=== PATIENT | female | born 1940 | race Caucasian/White ===

== ENCOUNTER 2023-02-16 12:57 | Observation (INO) | payer MEDICARE, MEDICAID, SELFPAY ==
[2023-02-16] VITALS (15 sets, daily range): BP systolic 105–129; BP diastolic 29–68; PULSE 72–85; RESP 16–18; TEMP 36.4–36.9; O2SAT 91–100
[2023-02-16 13:14] LABS: Basophils # 0.1 10^3/uL (0.0-0.1); Basophils % 0.2 %; Eosinophils % 0.1 %; Hematocrit 22.8 % (36-47); Lymphocytes # 1.1 10^3/uL (0.8-4.8); Mean Corpuscular HGB Conc 28.9 g/dL (30-55); Mean Corpuscular Hemoglobin 23.7 pg (27-33); Mean Platelet Volume 9.3 fL (7.4-10.4); Monocytes # 1.7 10^3/uL (0.2-0.9); Monocytes % 6.5 %; Neutrophils # 22.33 10^3/uL (1.8-7.7); Neutrophils % 84.7 %; Nucleated Red Blood Cells % 0.1 %; Platelet Count 419 10^3/cmm (157-399); Red Blood Count 2.78 10^6/uL (3.85-5.65); Red Cell Distribution Width 20.7 % (12.1-15.1); White Blood Count 26.35 10^3/uL (3.29-11.43)
[2023-02-16 13:39] LABS: Alanine Aminotransferase 10 U/L (0-33); Albumin Level 2.6 g/dL (3.5-5.2); Alkaline Phosphatase 112 U/L (35-105); Anion Gap 14.2 (5-19); Aspartate Amino Transferase 14 U/L (0-32); Blood Urea Nitrogen 22 mg/dL (8-23); Calcium 8.1 mg/dL (8.5-10.5); Carbon Dioxide 26 mmol/L (22-29); Chloride 103 mmol/L (98-107); Globulin 3.1 g/dL (1.3-4.6); Glucose 93 mg/dL (65-115); Osmolality Calculated 291 mOsm/kg (285-295); Potassium 4.2 mmol/L (3.5-5.1); Sodium 139 mmol/L (136-145); Total Bilirubin 0.3 mg/dL (0.15-1.2); Total Protein 5.7 g/dL (6.6-8.7)
--- NOTE | 2023-02-16 13:44 | ED_ITS ---
HPI - Recheck/Abnormal Lab/Rx General: Chief Complaint: Recheck/Abnormal Lab/Rx Stated Complaint: Low HGB Time Seen by Provider: 02/16/23 13:00 Source: patient Mode of arrival: EMS History of Present Illness: 82-year-old female presents emergency room complaining of feeling very weak. He has had chills and been increasingly short of breath she normally is on 2 L by nasal cannula for COPD and congestive heart failure. She has headache. Today shortness of breath and cough. He was recently hospitalized for an on displaced hip fracture which was being treated nonoperatively. This was in [place]. She has had a bit of increased productive cough recently in addition to being extremely weak and tired. She was sent here because of a low hemoglobin. residential and sent a BMP but no CBC when we contact them asking for labs to be sent the same labs that get already do not have any available baseline or old hemoglobins on her. MD complaint: abnormal lab Context: called for abnormal lab result Associated symptoms: fever, chills, chest pain, shortness of breath, rash, malaise, nausea and abdominal pain Review of Systems Const: Reports: fatigue and malaise; Denies: fever(s) or chills Card: Reports: dyspnea on exertion; Denies: chest pain, edema or orthopnea Resp: Reports: dyspnea and productive cough; Denies: non-productive cough GI: Denies: abdominal pain, nausea, vomiting, hematemesis, coffee ground emesis, diarrhea, constipation, bloating, hematochezia or melena : Denies: flank pain, difficulty voiding, dysuria, urinary frequency or urinary urgency Skin/Breast: Denies: rash or pruritus PFS ED PFSH: Medical History COPD (chronic obstructive pulmonary disease) Hip fracture Hypertension Neuropathy Respiratory failure Surgical History Status post insertion of spinal cord stimulator Family History Son Tremor Social History Smoking and tobacco status: former smoker Alcohol intake: never Substance/Drug Use: never Physical Exam Const: GENERAL APPEARANCE: cooperative and comfortable ORIENTATION/ CONSCIOUSNESS: Yes awake, Yes oriented to person, Yes oriented to place and Yes oriented to time HENMT: COMMON NORMALS: normocephalic, atraumatic and hearing grossly normal bilaterally HEAD & SCALP: normocephalic and atraumatic Resp: COMMON NORMALS: normal respiratory effort, No retractions and No use of accessory muscles AUSCULTATION: crackles and wheezes Cardio: COMMON NORMALS: regular rate, regular rhythm and No murmurs present (Cardio) RATE: regular rate RHYTHM: regular rhythm GI: COMMON NORMALS: Soft to palpation and No hepatosplenomegaly present AUSCULTATION: Yes normoactive bowel sounds PALPATION: Yes Soft to palpation, No Tenderness to palpation present (GI), No Guarding due to palpation present (GI) and Yes No hepatosplenomegaly present Extremity: COMMON NORMALS: normal to inspection, capillary refill normal, no clubbing, cyanosis or edema, no calf tenderness and no pedal edema Neuro: SENSORIUM/ORIENTATION: Yes oriented to person, Yes oriented to place and Yes oriented to time Skin: COMMON NORMALS: no rashes or lesions noted GENERAL SKIN EXAM: no rashes or lesions noted Course Vital Signs: Vital signs: Vital Signs Temperature 98.1 F 02/17/23 03:56 Pulse Rate 84 02/17/23 06:00 Respiratory Rate 18 02/17/23 04:07 Blood Pressure 135/62 02/17/23 03:56 Pulse Oximetry 94 02/17/23 04:07 Oxygen Delivery Me thod Nasal Cannula 02/17/23 04:07 Oxygen Flow Rate 4 02/17/23 04:07 MDM - Recheck/Abnormal Lab/Rx Medical Decision Making Severe iron deficient anemia with an iron level of 13 and a low MCV. She also has pneumonia. She is complaining of some abdominal pain when she first arrived CT of the abdomen unremarkable but does show lower lobe pneumonias. There is some constipation present. Admit for pneumonia with increased oxygen requirement and anemia transfuse. Anemia labs ordered prior to transfusion discussed with hospitalist orders written Medical Records I reviewed the patient's medical records. Lab Data I reviewed the patient's lab results. 02/17/23 04:55 02/17/23 04:55 Laboratory Results WBC 26.35 10^3/uL (3.29-11.43) H 02/16/23 13:08 RBC 2.78 10^6/uL (3.85-5.65) L 02/16/23 13:08 Hgb 6.60 g/dL (11.27-16.99) L 02/16/23 13:08 Hct 22.8 % (36-47) L 02/16/23 13:08 MCV 82.0 fl (85-98) L 02/16/23 13:08 MCH 23.7 pg (27-33) L 02/16/23 13:08 MCHC 28.9 g/dL (30-55) L 02/16/23 13:08 RDW 20.7 % (12.1-15.1) H 02/16/23 13:08 Plt Count 419 10^3/cmm (157-399) H 02/16/23 13:08 MPV 9.3 fL (7.4-10.4) 02/16/23 13:08 Neut % (Auto) 84.7 % 02/16/23 13:08 Lymph % (Auto) 4.0 % 02/16/23 13:08 Richardson % (Auto) 6.5 % 02/16/23 13:08 Eos % (Auto) 0.1 % 02/16/23 13:08 Baso % (Auto) 0.2 % 02/16/23 13:08 Reticulocyte % (Auto) 1.4 % (0.5-2.0) 02/16/23 13:08 Neut # (Auto) 22.33 10^3/uL (1.8-7.7) H 02/16/23 13:08 Lymph # (Auto) 1.1 10^3/uL (0.8-4.8) 02/16/23 13:08 Richardson # (Auto) 1.7 10^3/uL (0.2-0.9) H 02/16/23 13:08 Eos # (Auto) 0.0 10^3/uL (0.0-0.8) 02/16/23 13:08 Baso # (Auto) 0.1 10^3/uL (0.0-0.1) 02/16/23 13:08 Nucleated RBC % (auto) 0.1 % 02/16/23 13:08 Nucleated RBCs # 0.0 /100WBC 02/16/23 13:08 Haptoglobin 410.0 mg/L (30-200) H 02/16/23 13:08 Sodium 139 mmol/L (136-145) 02/16/23 13:08 Potassium 4.2 mmol/L (3.5-5.1) 02/16/23 13:08 Chloride 103 mmol/L (98-107) 02/16/23 13:08 Carbon Dioxide 26 mmol/L (22-29) 02/16/23 13:08 Anion Gap 14.2 (5-19) 02/16/23 13:08 BUN 22 mg/dL (8-23) 02/16/23 13:08 Creatinine 0.5 mg/dL (0.5-0.9) 02/16/23 13:08 GFR Calculation Not Reportable 02/16/23 13:08 Glucose 93 mg/dL (65-115) 02/16/23 13:08 POC Glucose 79 mg/dL (70-110) 02/16/23 14:00 Calculated Osmolality 291 mOsm/kg (285-295) 02/16/23 13:08 Lactic Acid 1.1 mmol/L (0.5-2.2) 02/16/23 13:08 Calcium 8.1 mg/dL (8.5-10.5) L 02/16/23 13:08 Iron 13 ug/dL (37-145) L 02/16/23 13:08 TIBC 208 mcg/dl 02/16/23 13:08 % Saturation 6.2 % (20-50) L 02/16/23 13:08 Unsat Iron Binding 195 ug/dL (112-347) 02/16/23 13:08 Ferritin 113 ng/mL (15-150) 02/16/23 13:08 Total Bilirubin 0.3 mg/dL (0.15-1.2) 02/16/23 13:08 AST 14 U/L (0-32) 02/16/23 13:08 ALT 10 U/L (0-33) 02/16/23 13:08 Alkaline Phosphatase 112 U/L (35-105) H 02/16/23 13:08 C-Reactive Protein 305.9 mg/L (0.0-4.9) H 02/16/23 13:08 Total Protein 5.7 g/dL (6.6-8.7) L 02/16/23 13:08 Albumin 2.6 g/dL (3.5-5.2) L 02/16/23 13:08 Globulin 3.1 g/dL (1.3-4.6) 02/16/23 13:08 Vitamin B12 1774 pg/mL (232-1245) H 02/16/23 13:08 Folate 6.3 ng/mL (4.8-37.3) 02/16/23 13:08 Procalcitonin 2.90 ng/mL (0-0.5) H 02/16/23 13:08 TSH 1.96 uIU/mL (0.27-4.20) 02/16/23 13:08 Blood Type B Positive 02/16/23 13:00 Rho(D) Type Positive 02/16/23 13:00 Antibody Screen Negative 02/16/23 13:00 Crossmatch See Detail 02/16/23 13:00 Discharge Plan Discharge Patient Disposition: Admitted As Inpatient Admit Provider: Rajat Pat Clinical Impression: Pneumonia, Respiratory failure, Anemia, COPD (chronic obstructive pulmonary disease) Condition: Stable Coding Level of Care Code ED Agricultural Agent for Charan Maynard
--- NOTE | 2023-02-16 13:53 | CT_ITS ---
WS: [id number] CT ABDOMEN PELVIS TECHNIQUE: Contrast-enhanced CT of the abdomen and pelvis with coronal and sagittal reformatted image s. CLINICAL INFORMATION: abd pain COMPARISON: None. DLP: 299.[address] scans at [facility] use at least one of these dose optimization techniques: automated e xposure control; mA and/or kV adjustment per patient size (includes targeted exams where dose is matc hed to clinical indication); or iterative reconstruction. FINDINGS: Small LEFT greater than RIGHT pleural effusions. Patchy infiltrates within the lingula and LEFT lower lobe. Recommend correlation for pneumonia. Subsegmental atelectasis with a few patchy infiltrates in the RIGHT lower lobe. Few hazy infiltrates in the RIGHT middle lobe. Diffuse fatty filtration liver. Splenic granulomas. Small esophageal hernia. Postoperative changes LEFT ADEEL. Pedicle screw fixation L3-L5 with laminectomy defects. Portal vein an d splenic vein are patent. Normal gallbladder. Bilateral renal cysts. No hydronephrosis in either kid tash. Adrenal glands are normal. Moderate atheromatous disease abdominal aorta with calcification. No significant aneurysm. No evidence of high-grade small or large bowel obstruction. Constipation involving the RIGHT colon an d cecum. Fecal retention in the transverse colon. Spinal stimulator pack in the LEFT lower back. Spin al stimulator leads in the thoracic spine seen on the kennel aide imaging. IMPRESSION: 1. Small LEFT greater than RIGHT pleural effusions with patchy infiltrates in the lung bases LEFT gr eater than RIGHT. Coarse infiltrates in the lingula and LEFT lower lobe. Recommend correlation for pn eumonia. 2. Small esophageal hernia. 3. Constipation involving the cecum RIGHT colon and transverse colon. No evidence of high-grade obst ruction. 4. Spinal stimulator. 5. LEFT ADEEL degrades images the pelvis. 6. Pedicle screw fixation L3-L5 laminectomy defects. 7. Moderate aortic atheromatous disease. 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 8. Small bilateral renal cysts. No hydronephrosis. 9. No other acute findings.
[2023-02-16 14:05] LABS: Glucose Point of Care 79 mg/dL (70-110)
[2023-02-16 14:17] LABS: Ferritin 113 ng/mL (15-150); Iron 13 ug/dL (37-145); Percent Saturation 6.2 % (20-50); Total Iron Binding Capacity 208 mcg/dl; Unsaturated Iron Binding 195 ug/dL (112-347)
[2023-02-16 14:33] LABS: Vitamin B12 1774 pg/mL (232-1245)
[2023-02-16] MEDS: iohexol 350 mg/mL 500 mL Btl (per mL) IV (14:33)
[2023-02-16 14:34] LABS: Folate Level 6.3 ng/mL (4.8-37.3)
[2023-02-16 14:59] LABS: Reticulocyte % 1.4 % (0.5-2.0)
--- NOTE | 2023-02-16 15:12 | XR_ITS ---
WS: [id number] EXAMINATION: XR chest 1V portable [id number] REASON FOR EXAM: dyspnea/cough COMPARISON: None available. ORDER DATE: 02/16/2023 3:14 PM TECHNIQUE: A single, portable frontal chest x-ray was obtained. X-RAY FINDINGS: There are diffuse changes of peribronchial cuffing and interstitial thickening consistent with pulmon stephen edema. There is basilar opacity on the right in part due to pleural effusion but there could be u nderlying infiltrate or atelectasis. Atherosclerotic aortic change noted. Spinal stimulator in revers ed left shoulder arthroplasty noted.
[2023-02-16 15:53] LABS: Lactic Sepsis W/Reflex 1.1 mmol/L (0.5-2.2)
--- NOTE | 2023-02-16 17:40 | PM.HP ---
Providers/Chief Complaint Admitting Physician: Rajat Pat MD Primary Care Provider: Sheri Fong NP Chief Complaint: Low HGB History of Present Illness Pat Ray is a 82 year old female with a past medical history significant for hypothyroidism, COPD with chronic hypoxic respiratory failure, and hypertension who presents from nursing facility with shortness of breath x2 to 3 days. Patient reports she was in her usual state of health until several weeks ago when she fell 3 times in 1 week. She states she was admitted to an outside hospital in [place]. She was found to have a hip fracture which she states was managed nonoperatively. She states that she has not been bedbound but has been bearing weight, only doing mainly transfers at the nursing facility. She reports she has been there about a week or 2. She is up in this area as it is closer to family in [place]. She currently endorses associated symptoms of productive cough with yellowish-green sputum. Also reports wheezing. Reports exertion worsens her symptoms. Reports rest improves her symptoms. Reports a history of COPD. Reports prior exacerbations that were similar to this 1. In the ED, labs revealed significant leukocytosis with white count of 26, significant anemia of hemoglobin of 6.6 with MCV of 82, and platelets of 419. She denies known history of prior GI bleeds. She is unsure of her recent hemoglobin levels. Iron level found to be 13. She is on meloxicam. Reports her bowel movements are brown. Denies any black or tarry bowel movements. Denies any known bleeding. Imaging revealed bilateral pleural effusions and bilateral infiltrates. Review of Systems Narrative: A complete review of systems was obtained and is negative except as stated in HPI. Medications/Allergies Home Medications Medication Instructions Recorded Confirmed Last Taken Type albuterol sulfate 2.5 mg/3 mL See Rx Instructions .Route .COMPLEX 02/16/23 02/16/23 Unknown History (0.083 %) solution for nebulization albuterol sulfate 90 mcg/actuation 2 puff inhalation Q4H PRN 02/16/23 02/16/23 Unknown History aerosol inhaler (Ventolin HFA) Shortness Of Breath alendronate 70 mg tablet 70 mg PO .WEEKLY 02/16/23 02/16/23 02/15/23 History bisacodyl 10 mg rectal suppository See Rx Instructions .Route 02/16/23 02/16/23 Unknown History .COMPLEX PRN Constipation budesonide 0.5 mg/2 mL suspension 0.5 mg inhalation BID copd 02/16/23 02/16/23 02/16/23 History for nebulization cyanocobalamin (vitamin B-12) 1,000 mcg PO DAILY 02/16/23 02/16/23 02/16/23 History 1,000 mcg tablet (Vitamin B-12) cyclobenzaprine 10 mg tablet 10 mg PO DAILY PRN Muscle Spasm 02/16/23 02/16/23 Unknown History ergocalciferol (vitamin D2) 1,250 1,250 mcg PO .WEEKLY 02/16/23 02/16/23 Unknown History mcg (50,000 unit) capsule (Vitamin D2) gabapentin 800 mg tablet 800 mg PO QID NEUROPATHY 02/16/23 02/16/23 02/16/23 History hydrocodone 5 mg-acetaminophen 325 1 tab PO Q8H PRN MODERATE OR 02/16/23 02/16/23 Unknown History mg tablet SEVERE PAIN ipratropium bromide 0.02 % 2.5 ml inhalation QID COPD 02/16/23 02/16/23 02/16/23 History solution for inhalation levothyroxine 25 mcg tablet 25 mcg PO DAILY HYPOTHRYOIDISM 02/16/23 02/16/23 02/16/23 History magnesium hydroxide 400 mg/5 mL See Rx Instructions .Route .COMPLEX 02/16/23 02/16/23 Unknown History oral suspension (Milk of Magnesia) melatonin 10 mg tablet 10 mg PO DAILY PRN Insomnia 02/16/23 02/16/23 Unknown History meloxicam 7.5 mg tablet 7.5 mg PO DAILY PAIN 02/16/23 02/16/23 02/16/23 History metoprolol tartrate 25 mg tablet 12.5 mg PO DAILY 02/16/23 02/16/23 02/16/23 History montelukast 10 mg tablet 10 mg PO QPM copd 02/16/23 02/16/23 02/15/23 History terbinafine HCl 250 mg tablet 250 mg PO DAILY tinea unguium 02/16/23 02/16/23 02/16/23 History Allergies Allergy/AdvReac Type Severity Reaction Status Date / Time codeine Allergy ADR-Itching Verified 02/16/23 13:32 Penicillins Allergy ADR-Itching Verified 02/16/23 13:32 PFSH Acute PFSH: Medical History COPD (chronic obstructive pulmonary disease) Hip fracture Hypertension Neuropathy Respiratory failure Surgical History Status post insertion of spinal cord stimulator Family History Son Tremor Social History Smoking and tobacco status: former smoker Alcohol intake: never Substance/Drug Use: never Vitals/I&O/Wt Last Vital Signs Temp 98.1 F 02/16/23 16:10 Pulse 79 02/16/23 16:10 Resp 16 02/16/23 16:10 BP 124/58 02/16/23 16:10 Pulse Ox 100 02/16/23 16:10 O2 Del Method Nasal Cannula 02/16/23 16:09 O2 Flow Rate 4 02/16/23 16:09 02/16/23 02/16/23 02/16/23 06:59 14:59 22:59 Intake Total 0 / 0 Balance 0 / 0 Weight last 48 hrs Weight 38.555 kg Physical Exam Narrative: General: Patient is awake and alert. Frail and cachectic. Head: Normocephalic. Atraumatic. EOM intact. PERRL mucous membranes. Neck: No JVD. Cardiovascular: RRR. No gallops. No murmurs. Lungs: Breath sounds diminished bilateral bases. She has bilateral rhonchi. And expiratory wheezing. On nasal cannula support. Skin: No jaundice. No rashes. Abdomen: Normal bowel sounds, abdomen soft and nontender. Extremities: No cyanosis or clubbing. Musculoskeletal: No swollen or erythematous joints. Neurological: Moves all 4 extremities. No myoclonus. Data 02/16/23 13:08 02/16/23 13:08 Micro: Microbiology 02/16/23 14:42 Blood Culture - Preliminary Blood SPECIMEN COLLECTED 02/16/23 14:46 Blood Culture - Preliminary Blood SPECIMEN COLLECTED A&P Assessment and plan (1) Pneumonia: Bilateral pneumonia in the setting of recent hospitalization in [place] MRSA swab Start vancomycin, pharmacy to dose Start Zosyn, pharmacy to dose Pulmonary toilet Procalcitonin (2) COPD (chronic obstructive pulmonary disease): Acute on chronic COPD exacerbation secondary pneumonia pneumonia Start IV steroids Pulmicort DuPrimo (3) Anemia: MCV 82, iron deficiency noted Transfusing 1 packed red blood cell Denies any blood loss including melena BUN unremarkable Start empiric PPI IV every 12 hours Would likely benefit from endoscopy evaluation when she recovers from pneumonia Consider iron infusions depending on how many packs of red blood cells she ends up needing (4) Respiratory failure: Chronic respiratory failure with hypoxia Continue supplemental oxygen support for SPO2 goal of 88 to 92% (5) Neuropathy: Continue gabapentin (6) Hip fracture: Patient reports was nonoperative management Fall precautions Plan for therapy evaluation tomorrow (7) Hypertension: Continue metoprolol Plan DVT prophylaxis: SCD CODE STATUS: Full code Attestations Medical Necessity Statement*: Patient presents with shortness of breath, found to have acute COPD exacerbation, bilateral pneumonia, acute COPD exacerbation and multiple hematologic/metabolic derangements with expected hospitalization for work-up and treatment to cross 2 midnights. Coding Level of Care Code Acute Code for [facility] Fwd Diagnoses Pneumonia J18.9 COPD (chronic obstructive pulmonary disease) J44.9 Anemia D64.9 Respiratory failure J96.90 Neuropathy G62.9 Hip fracture S72.009A Hypertension I10
[2023-02-16 18:20] LABS: Thyroid Stimulating Hormone 1.96 uIU/mL (0.27-4.20)
[2023-02-16 18:31] LABS: C Reactive Protein 305.9 mg/L (0.0-4.9)
[2023-02-16] MEDS: pantoprazole 40 mg SDV IVP (19:08)
[2023-02-16] MEDS: methylPREDNISolone sod succ 40 MG in water for injection-sterile 1 ML 12 MG IVP (19:09)
[2023-02-16] MEDS: montelukast sodium 10 mg Tablet PO (19:09)
[2023-02-16] MEDS: ipratropium-albuterol 3 mL Neb INHALATION ×2 (19:45→23:33)
[2023-02-16] MEDS: budesonide 0.5 mg/2 mL Neb INHALATION (19:45)
[2023-02-16 19:55] LABS: Hematocrit 30.2 % (36-47)
[2023-02-16] MEDS: gabapentin 400 mg Capsule 800 MG PO (21:02)
[2023-02-16] MEDS: metoprolol tartrate 25 mg Tablet 12.5 MG PO (21:02)
[2023-02-17] VITALS (12 sets, daily range): BP systolic 108–135; BP diastolic 49–69; PULSE 61–89; RESP 15–18; TEMP 36.6–36.8; O2SAT 92–98
[2023-02-17] MEDS: lanolin oint 7 gm 1 APPLIC TOPICAL (00:18)
[2023-02-17] MEDS: ipratropium-albuterol 3 mL Neb INHALATION ×5 (04:07→19:50)
[2023-02-17 05:13] LABS: Basophils # 0.2 10^3/uL (0.0-0.1); Basophils % 0.7 %; Hematocrit 34.3 % (36-47); Lymphocytes # 0.8 10^3/uL (0.8-4.8); Lymphocytes % 3.6 %; Mean Corpuscular HGB Conc 27.7 g/dL (30-55); Mean Corpuscular Hemoglobin 24.3 pg (27-33); Mean Corpuscular Volume 87.7 fl (85-98); Mean Platelet Volume 9.9 fL (7.4-10.4); Monocytes # 0.4 10^3/uL (0.2-0.9); Monocytes % 1.6 %; Neutrophils # 20.76 10^3/uL (1.8-7.7); Neutrophils % 90.1 %; Nucleated Red Blood Cells % 0.1 %; Platelet Count 447 10^3/cmm (157-399); Red Blood Count 3.91 10^6/uL (3.85-5.65); Red Cell Distribution Width 19.8 % (12.1-15.1); White Blood Count 23.04 10^3/uL (3.29-11.43)
[2023-02-17 05:44] LABS: Blood Urea Nitrogen 23 mg/dL (8-23); Calcium 8.6 mg/dL (8.5-10.5); Carbon Dioxide 23 mmol/L (22-29); Chloride 102 mmol/L (98-107); Glucose 180 mg/dL (65-115); Magnesium 2.3 mg/dL (1.7-2.3); Osmolality Calculated 296 mOsm/kg (285-295); Phosphorus 3.1 mg/dL (2.5-4.5); Sodium 139 mmol/L (136-145)
[2023-02-17] MEDS: pantoprazole 40 mg SDV IVP ×2 (05:46→17:20)
[2023-02-17] MEDS: methylPREDNISolone sod succ 40 MG in water for injection-sterile 1 ML 12 MG IVP (05:46)
[2023-02-17 05:50] LABS: Anion Gap 18.4 (5-19); Potassium 4.4 mmol/L (3.5-5.1)
[2023-02-17] MEDS: budesonide 0.5 mg/2 mL Neb INHALATION ×2 (08:04→19:50)
--- NOTE | 2023-02-17 08:26 | P.PN_ITS ---
Subjective Subjective: Hospital course, labs appreciated. On examination patient lying comfortably in bed on 3 L of oxygen supplementation. Comfortable in bed. States she was recently admitted to the [place] [facility] from [place] where she was admitted for hip fracture which was treated medically. She was recently at [facility] for anemia. She is admitted again this time to the hospital for weakness and found to have anemia. Does complain of having cough and some difficulty breathing which is increased from her baseline for last 2 weeks. Denies any nausea, vomiting, headache. Blood work appreciated for leukocytosis of 23,000, hemoglobin of 9.5 trending up from 8.8, CMP showing stable creatinine and electrolytes. Vitals/I&O/Wt Last Vital Signs Temp 97.9 F 02/18/23 07:34 Pulse 108 H 02/18/23 07:34 Resp 18 02/18/23 07:34 BP 136/70 02/18/23 07:34 Pulse Ox 99 02/18/23 04:00 O2 Del Method Nasal Cannula 02/18/23 04:26 O2 Flow Rate 3.5 02/18/23 04:26 02/17/23 02/18/23 02/18/23 22:59 06:59 14:59 Intake Total 480 / 1320 200 / 1520 Balance 480 / 1320 200 / 1520 Weight last 48 hrs Weight 36.287 kg Weight 36.429 kg Weight 38.555 kg Physical Exam Narrative: General: Patient is awake and alert. Frail and cachectic. Head: Normocephalic. Atraumatic. EOM intact. PERRL mucous membranes. Neck: No JVD. Cardiovascular: RRR. No gallops. No murmurs. Lungs: Breath sounds diminished bilateral bases. She has bilateral rhonchi. And expiratory wheezing. On nasal cannula support. Skin: No jaundice. No rashes. Abdomen: Normal bowel sounds, abdomen soft and nontender. Extremities: No cyanosis or clubbing. Musculoskeletal: No swollen or erythematous joints. Neurological: Moves all 4 extremities. No myoclonus. Data 02/18/23 05:16 02/18/23 05:16 Micro: Microbiology 02/16/23 14:42 Blood Culture - Preliminary Blood NEGATIVE TO DATE 02/16/23 14:46 Blood Culture - Preliminary Blood NEGATIVE TO DATE 02/16/23 18:25 MRSA Culture - Final Nose A&P Assessment and plan (1) Pneumonia: Bilateral pneumonia in the setting of recent hospitalization in [place] MRSA negative. Vancomycin discontinued yesterday. Continue with Zosyn for now. If remains hemodynamically stable and afebrile will transition over to oral antibiotics for the next 24 hours. Pulmonary toilet with incentive spirometry and flutter valve. Sputum culture when able. We will check CT chest without contrast for further evaluation of possible pneumonia. (2) COPD (chronic obstructive pulmonary disease): Acute on chronic COPD exacerbation secondary pneumonia pneumonia Continue with Pulmicort twice daily, DuoNebs every 6 hours. Wean Solu-Medrol to 40 mg twice daily. Ox supplementation given saturation over 90%. Baseline 1-2 2-/2 because of the supplementation. (3) Anemia: Post monitor blood transfusion. Iron panel consistent with iron deficiency anemia and anemia of chronic disease. Stool for occult blood awaited. Patient denies any melena. Protonix twice daily. If hemoglobin drops will start on Carafate. Monitor hemoglobin daily for now. Check vitamin B12, folate levels. (4) Respiratory failure: Acute on chronic chronic respiratory failure with hypoxia Continue supplemental oxygen support for SPO2 goal of 88 to 92% (5) Neuropathy: Continue gabapentin (6) Hip fracture: Patient reports was nonoperative management Fall precautions No documentation available in system. Get CT hip for further evaluation. PT evaluation. (7) Hypertension: Goal blood pressure less than 140/90 mmHg. Continue home dose of metoprolol Plan DVT prophylaxis: SCD CODE STATUS: Full code Protonix will suffice as DVT prophylaxis. Discharge plan: Plan to discharge back to SNF once patient is medically stable. Attestations Medical Necessity Statement*: Patient requires further hospitalization for management of acute on chronic hypoxia in setting of pneumonia and COPD exacerbation, anemia while acute GI bleed is ruled out Diagnoses Pneumonia J18.9 COPD (chronic obstructive pulmonary disease) J44.9 Anemia D64.9 Respiratory failure J96.90 Neuropathy G62.9 Hip fracture S72.009A Hypertension I10
[2023-02-17] MEDS: levothyroxine 25 mcg Tablet PO (08:31)
[2023-02-17] MEDS: metoprolol tartrate 25 mg Tablet 12.5 MG PO ×2 (08:31→20:57)
[2023-02-17] MEDS: gabapentin 400 mg Capsule 800 MG PO ×4 (08:31→20:57)
--- NOTE | 2023-02-17 11:58 | CTR_ITS ---
PROCEDURE INFORMATION: Exam: CT Chest Without Contrast; Diagnostic Exam date and time: 02/17/2023 9:43 PM Age: 82 years old Clinical indication: Shortness of breath; Additional info: Pna TECHNIQUE: Imaging protocol: Diagnostic computed tomography of the chest without contrast. Radiation optimization: All CT scans at this facility use at least one of these dose optimization techniques: automated exposure control; mA and/or kV adjustment per patient size (includes targeted exams where dose is matched to clinical indication); or iterative reconstruction. REPORTING DATA: Count of CT and Cardiac NM exams in prior 12 months: This patient has received [address] and 0 known cardiac nuclear medicine studies in the 12 months prior to the current study. COMPARISON: CR XR chest 1V portable [id number] 02/16/2023 3:18 PM RADIATION DOSE METRICS: Total DLP (mGy-cm): 232.72 FINDINGS: Tubes, catheters and devices: Implanted neurostimulator device in the left posterior abdominal wall with leads terminating in the midthoracic spinal canal. Lungs: Bronchial wall thickening. Background upper lobe predominant centrilobular emphysema. Scattered centrilobular tree-in-bud nodularity in the posterior right upper lobe and throughout the right lower lobe with patchy opacities superior right lower lobe. Dependent opacity in the left upper lobe contiguous with opacities lingula which demonstrate features of organization. Additional organizing opacities in the left lower lobe. Interlobular septal thickening. Pleural spaces: Small bilateral pleural effusions, left greater than right with partial loculation on the left. No pneumothorax. Heart: Unremarkable. No cardiomegaly. No pericardial effusion. Coronary arteries: At least moderate coronary artery calcifications. Mediastinal space: Patulous proximal esophagus with mild fluid which places patient at risk for aspiration. Lymph nodes: Partially calcified mediastinal and hilar lymph nodes indicative of prior granulomatous disease. Limited assessment of hilar nodes size in the absence of intravenous contrast, possible mild left hilar chapis enlargement which is likely reactive. Vasculature: Mild atherosclerotic calcification of the thoracic aorta and arch vessels. Liver: Punctate calcification in the liver. Spleen: Calcified granulomas in the spleen. Kidneys and ureters: Partially visualized left renal cyst. Bones/joints: Partially visualized lumbar fixation hardware. Soft tissues: Unremarkable. CT/CT chest wo con [id number] IMPRESSION: 1. Multifocal left lung opacities with features of organization most compatible with recent pneumonia, possibly related to aspiration given dependent and basal distribution. 2. Small partially loculated left pleural effusion raising concern for exudative effusion. 3. Centrilobular tree-in-bud nodularity scattered throughout the right lung compatible with airway centered infectious/inflammatory process including aspiration. 4. Mild interstitial pulmonary edema. Small layering right pleural effusion. 5. Smoking related lung disease. COMMENTS: Consistent with the [employer]'s Incidental Findings Committee white paper (J Am Flores [employer]iol 2018): Any incidental renal lesion less than 1 cm or classified as too small to characterize, or any incidental cystic renal lesion characterized as simple-appearing, is likely benign. No follow-up imaging is recommended for these lesions per consensus recommendations based on imaging criteria.
--- NOTE | 2023-02-17 12:21 | CTR_ITS ---
PROCEDURE INFORMATION: Exam: CT Left Lower Extremity Without Contrast, Hip Exam date and time: 02/17/2023 9:48 PM Age: 82 years old Clinical indication: Pain; Bilateral; Prior surgery; Surgery date: 6+ months; Surgery type: Left total hip; Additional info: Hip fracture TECHNIQUE: Imaging protocol: CT of the left lower extremity without contrast was performed. Exam focused on the hip. Radiation optimization: All CT scans at this facility use at least one of these dose optimization techniques: automated exposure control; mA and/or kV adjustment per patient size (includes targeted exams where dose is matched to clinical indication); or iterative reconstruction. REPORTING DATA: Count of CT and Cardiac NM exams in prior 12 months: This patient has received [address] and 0 known cardiac nuclear medicine studies in the 12 months prior to the current study. COMPARISON: CT abdomen pelvis w con* [id number] 02/16/2023 2:12 PM RADIATION DOSE METRICS: Total DLP (mGy-cm): 267.9 FINDINGS: Bones/joints: Status post left hip arthroplasty. Acute versus subacute transverse fracture through the greater trochanter which abuts the superior aspect of the femoral stem. No significant perihardware lucency. Soft tissues: Soft tissue thickening and calcification overlying the greater trochanter. Urinary bladder: Excreted contrast in the bladder lumen. CT/CT hip LT wo con* [id number] IMPRESSION: 1. Acute versus subacute transverse fracture through the greater trochanter which abuts the superior aspect of the femoral stem. 2. 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
--- NOTE | 2023-02-17 12:21 | CTR_ITS ---
PROCEDURE INFORMATION: Exam: CT Right Lower Extremity Without Contrast, Hip Exam date and time: 02/17/2023 9:45 PM Age: 82 years old Clinical indication: Pain; Bilateral; Prior surgery; Surgery date: 6+ months; Surgery type: Left total hip; Additional info: Hip fracture TECHNIQUE: Imaging protocol: CT of the right lower extremity without contrast was performed. Exam focused on the hip. Radiation optimization: All CT scans at this facility use at least one of these dose optimization techniques: automated exposure control; mA and/or kV adjustment per patient size (includes targeted exams where dose is matched to clinical indication); or iterative reconstruction. REPORTING DATA: Count of CT and Cardiac NM exams in prior 12 months: This patient has received [address] and 0 known cardiac nuclear medicine studies in the 12 months prior to the current study. COMPARISON: CT abdomen pelvis w con* [id number] 02/16/2023 2:12 PM RADIATION DOSE METRICS: Total DLP (mGy-cm): 205.95 FINDINGS: Bones/joints: Acute versus subacute mildly displaced fracture of the right greater trochanter which extends towards the femoral neck posteriorly. No intra-articular involvement. Mild hip joint osteoarthrosis. Soft tissues: Mild superficial soft tissue swelling of the right hip.. Vasculature: Mild atherosclerotic calcifications. Urinary bladder: Excreted contrast within the bladder lumen. CT/CT hip RT wo con* [id number] IMPRESSION: Acute versus subacute mildly displaced fracture of the right greater trochanter.
[2023-02-17 12:44] LABS: Vitamin B12 1833 pg/mL (232-1245)
[2023-02-17] MEDS: montelukast sodium 10 mg Tablet PO (17:20)
[2023-02-17] MEDS: sennosides-docusate Tablet 1 TAB PO (17:20)
[2023-02-18] VITALS (12 sets, daily range): BP systolic 93–136; BP diastolic 44–70; PULSE 63–108; RESP 3–20; TEMP 36.4–36.7; O2SAT 91–99
[2023-02-18 05:44] LABS: Hematocrit 31.1 % (36-47); Mean Corpuscular HGB Conc 29.6 g/dL (30-55); Mean Corpuscular Hemoglobin 24.6 pg (27-33); Mean Corpuscular Volume 83.2 fl (85-98); Mean Platelet Volume 9.7 fL (7.4-10.4); Platelet Count 575 10^3/cmm (157-399); Red Blood Count 3.74 10^6/uL (3.85-5.65); White Blood Count 18.57 10^3/uL (3.29-11.43)
[2023-02-18 05:59] LABS: Alanine Aminotransferase 21 U/L (0-33); Albumin Level 2.9 g/dL (3.5-5.2); Alkaline Phosphatase 111 U/L (35-105); Aspartate Amino Transferase 38 U/L (0-32); Blood Urea Nitrogen 22 mg/dL (8-23); Calcium 8.1 mg/dL (8.5-10.5); Carbon Dioxide 28 mmol/L (22-29); Chloride 104 mmol/L (98-107); Globulin 2.7 g/dL (1.3-4.6); Glucose 88 mg/dL (65-115); Osmolality Calculated 295 mOsm/kg (285-295); Sodium 141 mmol/L (136-145); Total Bilirubin 0.2 mg/dL (0.15-1.2); Total Protein 5.6 g/dL (6.6-8.7)
[2023-02-18 06:02] LABS: Estmated Average Glucose 103; Hemoglobin A1C 5.2 % (4.0-6.0)
[2023-02-18 06:10] LABS: Slide Review Slide Review Perform
[2023-02-18 06:11] LABS: Cholesterol 122 mg/dL (0-200); HDL Cholesterol 47 mg/dL (60-100); LDL Cholesterol Calculated 49 mg/dL (50-129); Magnesium 2.1 mg/dL (1.7-2.3); Triglycerides 131 mg/dL (0-150); VLDL Cholestrol Calculation 26 mg/dL (0-30)
[2023-02-18 06:12] LABS: Absolute Segmented Neutrophil 14.1 10/cmm (1.6-7.1); Lymphocytes 9 %; Monocytes Absolute 1.5 10^3/cmm (0.1-0.6); Segmented Neutrophils 76 %; Total Cells Counted 100 (0-100)
[2023-02-18 06:13] LABS: Absolute Eosinophils 0.4 10^3/cmm (0.0-0.7); Eosinophils 2 %; Platelet Estimate Increased (Normal)
[2023-02-18] MEDS: pantoprazole 40 mg SDV IVP ×2 (06:46→15:50)
[2023-02-18] MEDS: gabapentin 400 mg Capsule 800 MG PO ×4 (07:56→20:35)
[2023-02-18] MEDS: metoprolol tartrate 25 mg Tablet 12.5 MG PO ×2 (07:56→20:35)
[2023-02-18] MEDS: sennosides-docusate Tablet 1 TAB PO ×2 (07:57→15:50)
[2023-02-18] MEDS: levothyroxine 25 mcg Tablet PO (07:57)
[2023-02-18] MEDS: methylPREDNISolone sod succ 40 MG in water for injection-sterile 1 ML 12 MG IVP (07:58)
--- NOTE | 2023-02-18 08:27 | P.PN_ITS ---
Subjective Subjective: No acute events overnight. Patient feels a lot better. She is supposed to be on 200 L of oxygen supplementation but currently off oxygen saturating 88 to 90%. Denies any nausea vomiting, headache. Denies any recent episode of vomiting or cough with food. Has been afebrile and hemodynamically stable. Blood work today shows mild resolution of leukocytosis, hemoglobin stable at 9.2, thrombocytosis, stable CMP with mild elevation of AST today, hypoalbuminemia, lipid panel appreciated. Vitals/I&O/Wt Last Vital Signs Temp 97.9 F 02/18/23 07:34 Pulse 108 H 02/18/23 07:34 Resp 18 02/18/23 07:34 BP 136/70 02/18/23 07:34 Pulse Ox 99 02/18/23 04:00 O2 Del Method Nasal Cannula 02/18/23 04:26 O2 Flow Rate 3.5 02/18/23 04:26 02/17/23 02/18/23 02/18/23 22:59 06:59 14:59 Intake Total 480 / 1320 200 / 1520 Balance 480 / 1320 200 / 1520 Weight last 48 hrs Weight 36.287 kg Weight 36.429 kg Weight 38.555 kg Physical Exam Narrative: General: Patient is awake and alert. Frail and cachectic. Head: Normocephalic. Atraumatic. EOM intact. PERRL mucous membranes. Neck: No JVD. Cardiovascular: RRR. No gallops. No murmurs. Lungs: Breath sounds diminished bilateral bases. She has bilateral rhonchi. And expiratory wheezing. On nasal cannula support. Skin: No jaundice. No rashes. Abdomen: Normal bowel sounds, abdomen soft and nontender. Extremities: No cyanosis or clubbing. Musculoskeletal: No swollen or erythematous joints. Neurological: Moves all 4 extremities. No myoclonus. Data 02/18/23 05:16 02/18/23 05:16 Micro: Microbiology 02/16/23 14:42 Blood Culture - Preliminary Blood NEGATIVE TO DATE 02/16/23 14:46 Blood Culture - Preliminary Blood NEGATIVE TO DATE 02/16/23 18:25 MRSA Culture - Final Nose A&P Assessment and plan (1) Pneumonia: Bilateral pneumonia in the setting of recent hospitalization in [place] MRSA negative. Vancomycin discontinued yesterday. Appreciate CT chest results. Patient has remained hemodynamically stable and afebrile. Though continues to have leukocytosis most likely in setting of steroids. Switch from Zosyn to oral doxycycline and Levaquin. Continue pulmonary toilet with incentive spirometry and flutter valve. Sputum culture when able. Appreciate CT chest results. Concern for aspiration pneumonia. Patient denies any cough with food or any episodes of emesis in the last 2 weeks. (2) COPD (chronic obstructive pulmonary disease): Acute on chronic COPD exacerbation secondary pneumonia pneumonia Continue with Pulmicort twice daily, DuoNebs every 6 hours. Switch from IV Solu-Medrol to prednisone 40 mg daily. Will finish a 5-day course. Ox supplementation given saturation over 90%. Baseline 1-2 2-2 because of the supplementation. (3) Anemia: Hemoglobin stable. Post 1 unit blood transfusion. Iron panel consistent with iron deficiency anemia and anemia of chronic disease. Stool for occult blood awaited. Patient denies any melena. Protonix twice daily. If hemoglobin drops will start on Carafate. Monitor hemoglobin daily for now. Appreciate vitamin B12, folate levels. (4) Respiratory failure: Acute on chronic chronic respiratory failure with hypoxia Continue supplemental oxygen support for SPO2 goal of 88 to 92% (5) Neuropathy: Continue gabapentin (6) Hip fracture: Patient reports was nonoperative management Fall precautions Appreciate CT hip results. Patient does not want to go ahead with any kind of surgical intervention. She wants to be treated medically. We will hold off on orthopedic evaluation. PT evaluation. (7) Hypertension: Goal blood pressure less than 140/90 mmHg. Continue home dose of metoprolol Plan DVT prophylaxis: SCD CODE STATUS: Full code Protonix will suffice as DVT prophylaxis. Discharge plan: Plan to discharge back to SNF once patient is medically stable. Plan for the day: Switch from IV to oral antibiotics. Continue with nebulization treatment. Switch from IV Solu-Medrol to oral prednisone. PT evaluation. If remains hemodynamically stable within next 24 hours will plan to discharge back to SNF. Attestations Medical Necessity Statement*: Requires further capitalization for management of acute on chronic hypoxia in setting of COPD exacerbation, left lower lobe pneumonia in a patient with right femur fracture Diagnoses Pneumonia J18.9 COPD (chronic obstructive pulmonary disease) J44.9 Anemia D64.9 Respiratory failure J96.90 Neuropathy G62.9 Hip fracture S72.009A Hypertension I10
[2023-02-18] MEDS: ipratropium-albuterol 3 mL Neb INHALATION ×3 (09:18→20:01)
[2023-02-18] MEDS: budesonide 0.5 mg/2 mL Neb INHALATION ×2 (09:19→20:01)
[2023-02-18] MEDS: doxycycline 100 mg Tablet PO ×2 (13:32→20:35)
[2023-02-18] MEDS: levoFLOXacin 750 mg Tablet PO (13:33)
[2023-02-18] MEDS: montelukast sodium 10 mg Tablet PO (15:50)
[2023-02-18 16:46] LABS: Add Urine Microscopic? NO; Charge for UA Resulting for Rev
[2023-02-18 17:06] LABS: Bilirubin Urine Neg (Negative); Blood Urine Neg (Negative); Glucose Urine UA Norm (Normal); Ketones Urine Negative (Negative); Leukocyte Esterase Urine Negative (Negative); Nitrate Urine Negative (Negative); Protein Urine Neg (Negative); Urine Appearance Clear (CLEAR); Urine Color Yellow (Yellow); Urobilinogen Urine Norm (Negative); pH Urine 6.5 (5-7)
[2023-02-19] VITALS (9 sets, daily range): BP systolic 97–120; BP diastolic 42–66; PULSE 61–90; RESP 15–18; TEMP 36.2–36.7; O2SAT 90–99
[2023-02-19 05:15] LABS: Basophils # 0.1 10^3/uL (0.0-0.1); Basophils % 0.5 %; Eosinophils # 0.1 10^3/uL (0.0-0.8); Eosinophils % 0.8 %; Hematocrit 28.7 % (36-47); Lymphocytes # 1.3 10^3/uL (0.8-4.8); Lymphocytes % 10.3 %; Mean Corpuscular HGB Conc 28.6 g/dL (30-55); Mean Corpuscular Hemoglobin 23.8 pg (27-33); Mean Corpuscular Volume 83.2 fl (85-98); Mean Platelet Volume 9.5 fL (7.4-10.4); Monocytes % 7.9 %; Neutrophils # 9.18 10^3/uL (1.8-7.7); Nucleated Red Blood Cells % 0.2 %; Platelet Count 490 10^3/cmm (157-399); Red Blood Count 3.45 10^6/uL (3.85-5.65); Red Cell Distribution Width 20.3 % (12.1-15.1); White Blood Count 12.75 10^3/uL (3.29-11.43)
[2023-02-19 05:37] LABS: Magnesium 1.9 mg/dL (1.7-2.3); Slide Review Slide Review Perform
[2023-02-19 05:42] LABS: Alanine Aminotransferase 21 U/L (0-33); Albumin Level 2.6 g/dL (3.5-5.2); Alkaline Phosphatase 88 U/L (35-105); Anion Gap 13.5 (5-19); Aspartate Amino Transferase 25 U/L (0-32); Blood Urea Nitrogen 18 mg/dL (8-23); Calcium 8.3 mg/dL (8.5-10.5); Carbon Dioxide 28 mmol/L (22-29); Chloride 103 mmol/L (98-107); Globulin 2.4 g/dL (1.3-4.6); Glucose 80 mg/dL (65-115); Osmolality Calculated 291 mOsm/kg (285-295); Potassium 4.5 mmol/L (3.5-5.1); Sodium 140 mmol/L (136-145); Total Bilirubin 0.2 mg/dL (0.15-1.2)
[2023-02-19] MEDS: levoFLOXacin 750 mg Tablet PO (05:57)
[2023-02-19] MEDS: pantoprazole 40 mg SDV IVP (05:57)
[2023-02-19] MEDS: doxycycline 100 mg Tablet PO ×2 (08:10→17:36)
[2023-02-19] MEDS: gabapentin 400 mg Capsule 800 MG PO ×3 (08:11→17:36)
[2023-02-19] MEDS: sennosides-docusate Tablet 1 TAB PO ×2 (08:11→17:36)
[2023-02-19] MEDS: levothyroxine 25 mcg Tablet PO (08:11)
[2023-02-19] MEDS: methylPREDNISolone sod succ 40 MG in water for injection-sterile 1 ML 12 MG IVP (08:11)
[2023-02-19] MEDS: metoprolol tartrate 25 mg Tablet 12.5 MG PO (08:24)
[2023-02-19] MEDS: budesonide 0.5 mg/2 mL Neb INHALATION (08:49)
[2023-02-19] MEDS: ipratropium-albuterol 3 mL Neb INHALATION ×3 (08:49→15:44)
--- NOTE | 2023-02-19 10:12 | PC.SOCIAL ---
IMM update IMM updated with patient. Verbalized an understanding. Copy pg 2 provided. Initialled, dated, timed, and placed in chart.
--- NOTE | 2023-02-19 10:49 | PM.DCS ---
Discharge Providers Date of Admission: 02/16/23 16:11 Date of Discharge: February 19, 2023 Attending Provider at Admission: Rajat Pat MD Attending Provider at Discharge: Enoch Fernando MD Primary Care Provider: Sheri Fong NP Diagnoses at Discharge Discharge Diagnosis (1) Pneumonia: Status: Acute (2) COPD (chronic obstructive pulmonary disease): Status: Acute (3) Anemia: Status: Acute (4) Respiratory failure: Status: Acute (5) Neuropathy: Status: Acute (6) Hip fracture: Status: Acute (7) Hypertension: Status: Acute Reason for Visit Reason for Visit: Low HGB Brief History: History as per HPI: Pat Ray is a 82 year old female with a past medical history significant for hypothyroidism, COPD with chronic hypoxic respiratory failure, and hypertension who presents from nursing facility with shortness of breath x2 to 3 days.? Patient reports she was in her usual state of health until several weeks ago when she fell 3 times in 1 week.? She states she was admitted to an outside hospital in [place].? She was found to have a hip fracture which she states was managed nonoperatively.? She states that she has not been bedbound but has been bearing weight, only doing mainly transfers at the nursing facility.? She reports she has been there about a week or 2.? She is up in this area as it is closer to family in [place].? She currently endorses associated symptoms of productive cough with yellowish-green sputum.? Also reports wheezing.? Reports exertion worsens her symptoms.? Reports rest improves her symptoms.? Reports a history of COPD.? Reports prior exacerbations that were similar to this 1. In the ED, labs revealed significant leukocytosis with white count of 26, significant anemia of hemoglobin of 6.6 with MCV of 82, and platelets of 419.? She denies known history of prior GI bleeds.? She is unsure of her recent hemoglobin levels.? Iron level found to be 13.? She is on meloxicam.? Reports her bowel movements are brown.? Denies any black or tarry bowel movements.? Denies any known bleeding. Imaging revealed bilateral pleural effusions and bilateral infiltrates. Hospital Course Hospital Course Patient was admitted to the hospital further evaluation and management of anemia mild hypoxia in setting of pneumonia and COPD exacerbation. Imaging on admission was consistent with bilateral pneumonia. She was started on broad-spectrum antibiotics, elation treatment and IV steroids. She received 1 unit of blood transfusion. During hospitalization stool for occult blood was negative. Iron studies was consistent with anemia of iron deficiency and chronic inflammation. Patient had CT hip which is consistent with hip fracture. Possible ORIF was discussed in detail with the patient but she declined any further procedures and states she would want it to be treated medically with physical therapy. Patient responded well to the treatment and has been at her baseline oxygen supplementation for more than 48 hours. She did not have any episode of bleeding during hospitalization and her hemoglobin remained stable. She has been discharged in Stable condition on oral doxycycline and Levaquin for next 1 week, prednisone 50 mg for 5 days along with inhalation treatment, Protonix and Carafate for next 4 weeks. Patient is advised not to take meloxicam anymore. Gabapentin has been continued as before. During hospitalization she was found to have mildly elevated blood pressures for which her home dose of metoprolol was adjusted. Physical Exam Narrative: General: Patient is awake and alert. Frail and cachectic. Head: Normocephalic. Atraumatic. EOM intact. PERRL mucous membranes. Neck: No JVD. Cardiovascular: RRR. No gallops. No murmurs. Lungs: Breath sounds diminished bilateral bases. She has bilateral rhonchi. And expiratory wheezing. On nasal cannula support. Skin: No jaundice. No rashes. Abdomen: Normal bowel sounds, abdomen soft and nontender. Extremities: No cyanosis or clubbing. Musculoskeletal: No swollen or erythematous joints. Neurological: Moves all 4 extremities. No myoclonus. Discharge Data Studies Completed and Pending Completed Studies During Hospitalization Category Date Time Status CT abdomen pelvis w con* [id number] Stat Cat Scan 02/16/23 13:[address] chest wo con [id number] Routine Cat Scan 02/17/23 11:[address] hip LT wo con* [id number] Routine Cat Scan 02/17/23 12:[address] hip RT wo con* [id number] Routine Cat Scan 02/17/23 12:21 Completed XR chest 1V portable [id number] Stat Exams 02/16/23 15:12 Completed Pending at discharge Category Date Time Status Blood Culture Stat Lab 02/16/23 14:42 Results MAG [Magnesium] AM LABS Lab 02/20/23 04:00 Ordered Occult Blood Stool [Immunochemical Fecal OCB] Routine Lab 02/19/23 08:47 Received Radiology Impressions Chest CT 02/17/23 11:58 IMPRESSION: 1. Multifocal left lung opacities with features of organization most compatible with recent pneumonia, possibly related to aspiration given dependent and basal distribution. 2. Small partially loculated left pleural effusion raising concern for exudative effusion. 3. Centrilobular tree-in-bud nodularity scattered throughout the right lung compatible with airway centered infectious/inflammatory process including aspiration. 4. Mild interstitial pulmonary edema. Small layering right pleural effusion. 5. Smoking related lung disease. COMMENTS: Consistent with the [employer]'s Incidental Findings Committee white paper (J Am Flores Radiol 2018): Any incidental renal lesion less than 1 cm or classified as too small to characterize, or any incidental cystic renal lesion characterized as simple-appearing, is likely benign. No follow-up imaging is recommended for these lesions per consensus recommendations based on imaging criteria. Hip CT 02/17/23 12:21 IMPRESSION: 1. Acute versus subacute transverse fracture through the greater trochanter which abuts the superior aspect of the femoral stem. 2. 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 Laboratory Results WBC 12.75 10^3/uL (3.29-11.43) H 02/19/23 04:35 RBC 3.45 10^6/uL (3.85-5.65) L 02/19/23 04:35 Hgb 8.20 g/dL (11.27-16.99) L 02/19/23 04:35 Hct 28.7 % (36-47) L 02/19/23 04:35 MCV 83.2 fl (85-98) L 02/19/23 04:35 MCH 23.8 pg (27-33) L 02/19/23 04:35 MCHC 28.6 g/dL (30-55) L 02/19/23 04:35 RDW 20.3 % (12.1-15.1) H 02/19/23 04:35 Plt Count 490 10^3/cmm (157-399) H 02/19/23 04:35 MPV 9.5 fL (7.4-10.4) 02/19/23 04:35 Neut % (Auto) 72.0 % 02/19/23 04:35 Lymph % (Auto) 10.3 % 02/19/23 04:35 [place] % (Auto) 7.9 % 02/19/23 04:35 Eos % (Auto) 0.8 % 02/19/23 04:35 Baso % (Auto) 0.5 % 02/19/23 04:35 Reticulocyte % (Auto) 1.4 % (0.5-2.0) 02/16/23 13:08 Neut # (Auto) 9.18 10^3/uL (1.8-7.7) H 02/19/23 04:35 Lymph # (Auto) 1.3 10^3/uL (0.8-4.8) 02/19/23 04:35 [place] # (Auto) 1.0 10^3/uL (0.2-0.9) H 02/19/23 04:35 Eos # (Auto) 0.1 10^3/uL (0.0-0.8) 02/19/23 04:35 Baso # (Auto) 0.1 10^3/uL (0.0-0.1) 02/19/23 04:35 Nucleated RBC % (auto) 0.2 % 02/19/23 04:35 Total Counted 100 (0-100) 02/18/23 05:16 Atypical Lymphs % Not Reportable 02/18/23 05:16 Segmented Neutrophils 76 % 02/18/23 05:16 Abs Segm Neuts (Man) 14.1 10/cmm (1.6-7.1) H 02/18/23 05:16 Band Neutrophils Not Reportable 02/18/23 05:16 Lymphocytes (Manual) 9 % 02/18/23 05:16 Monocytes (Manual) 8.0 % 02/18/23 05:16 Absolute Monocytes 1.5 10^3/cmm (0.1-0.6) H 02/18/23 05:16 Eosinophils (Manual) 2 % 02/18/23 05:16 Absolute Eosinophils 0.4 10^3/cmm (0.0-0.7) 02/18/23 05:16 Basophils (Manual) 0.0 % 02/18/23 05:16 Absolute Basophils 0.0 10^3/cmm (0.0-0.2) 02/18/23 05:16 Metamyelocytes 2.0 % 02/18/23 05:16 Myelocytes 3.0 % 02/18/23 05:16 Nucleated RBCs # 0.0 /100WBC 02/19/23 04:35 Platelet Estimate Increased (Normal) H 02/18/23 05:16 Haptoglobin 410.0 mg/L (30-200) H 02/16/23 13:08 Sodium 140 mmol/L (136-145) 02/19/23 04:35 Potassium 4.5 mmol/L (3.5-5.1) 02/19/23 04:35 Chloride 103 mmol/L (98-107) 02/19/23 04:35 Carbon Dioxide 28 mmol/L (22-29) 02/19/23 04:35 Anion Gap 13.5 (5-19) 02/19/23 04:35 BUN 18 mg/dL (-23) 02/19/23 04:35 Creatinine 0.5 mg/dL (0.5-0.9) 02/19/23 04:35 GFR Calculation Not Reportable 02/19/23 04:35 Glucose 80 mg/dL (65-115) 02/19/23 04:35 POC Glucose 79 mg/dL (70-110) 02/16/23 14:00 Estimat Average Glucose 103 02/18/23 05:16 Hemoglobin A1c 5.2 % (4.0-6.0) 02/18/23 05:16 Calculated Osmolality 291 mOsm/kg (285-295) 02/19/23 04:35 Lactic Acid 1.1 mmol/L (0.5-2.2) 02/16/23 13:08 Calcium 8.3 mg/dL (8.5-10.5) L 02/19/23 04:35 Phosphorus 3.1 mg/dL (2.5-4.5) 02/17/23 04:55 Magnesium 1.9 mg/dL (1.7-2.3) 02/19/23 04:35 Iron 13 ug/dL (37-145) L 02/16/23 13:08 TIBC 208 mcg/dl 02/16/23 13:08 % Saturation 6.2 % (20-50) L 02/16/23 13:08 Unsat Iron Binding 195 ug/dL (112-347) 02/16/23 13:08 Ferritin 113 ng/mL (15-150) 02/16/23 13:08 Total Bilirubin 0.2 mg/dL (0.15-1.2) 02/19/23 04:35 AST 25 U/L (0-32) 02/19/23 04:35 ALT 21 U/L (0-33) 02/19/23 04:35 Alkaline Phosphatase 88 U/L (35-105) 02/19/23 04:35 C-Reactive Protein 305.9 mg/L (0.0-4.9) H 02/16/23 13:08 Total Protein 5.0 g/dL (6.6-8.7) L 02/19/23 04:35 Albumin 2.6 g/dL (3.5-5.2) L 02/19/23 04:35 Globulin 2.4 g/dL (1.3-4.6) 02/19/23 04:35 Triglycerides 131 mg/dL (0-150) 02/18/23 05:16 Cholesterol 122 mg/dL (0-200) 02/18/23 05:16 LDL Cholesterol, Calc 49 mg/dL (50-129) L 02/18/23 05:16 Total VLDL Cholesterol 26 mg/dL (0-30) 02/18/23 05:16 HDL Cholesterol 47 mg/dL (60-100) L 02/18/23 05:16 Cholesterol/HDL Ratio 2.60 mg/dL (0.0-4.40) 02/18/23 05:16 Vitamin B12 1833 pg/mL (232-1245) H 02/17/23 04:55 Folate 6.3 ng/mL (4.8-37.3) 02/16/23 13:08 Procalcitonin 2.90 ng/mL (0-0.5) H 02/16/23 13:08 TSH 1.96 uIU/mL (0.27-4.20) 02/16/23 13:08 Urine Color Yellow (Yellow) 02/17/23 16:30 Urine Appearance Clear (CLEAR) 02/17/23 16:30 Urine pH 6.5 (5-7) 02/17/23 16:30 Ur Specific [place] 1.010 (1.005-1.030) 02/17/23 16:30 Urine Protein Neg (Negative) 02/17/23 16:30 Urine Glucose (UA) Norm (Normal) 02/17/23 16:30 Urine Ketones Negative (Negative) 02/17/23 16:30 Urine Blood Neg (Negative) 02/17/23 16:30 Urine Nitrate Negative (Negative) 02/17/23 16:30 Urine Bilirubin Neg (Negative) 02/17/23 16:30 Urine Urobilinogen Norm mg/dL (Negative) 02/17/23 16:30 Ur Leukocyte Esterase Negative (Negative) 02/17/23 16:30 Blood Type B Positive 02/16/23 13:00 Rho(D) Type Positive 02/16/23 13:00 Antibody Screen Negative 02/16/23 13:00 Crossmatch See Detail 02/16/23 13:00 Vitals Last Vital Signs Temp 97.8 F 02/19/23 08:00 Pulse 79 02/19/23 08:49 Resp 18 02/19/23 08:49 BP 116/62 02/19/23 08:00 Pulse Ox 90 02/19/23 08:49 O2 Del Method Nasal Cannula 02/19/23 08:49 O2 Flow Rate 3 02/19/23 08:49 Discharge Plan Discharge Patient Disposition: Xfer SNF Condition: Stable Prescriptions: New doxycycline monohydrate 100 mg Tablet 100 mg PO BID Qty: 14 0RF levofloxacin 750 mg Tablet 750 mg PO DAILY@0600 Qty: 7 0RF metoprolol tartrate 25 mg Tablet 12.5 mg PO BID@0900,2100 Qty: 30 0RF prednisone 50 mg tablet 50 mg PO DAILY 5 Days Qty: 5 0RF Protonix 40 mg tablet,delayed release (DR/EC) 40 mg PO QAM 28 Days Qty: 28 0RF Carafate 1 gram tablet 1 g PO BID 28 Days Qty: 56 0RF Continued cyclobenzaprine 10 mg Tablet 10 mg PO DAILY PRN (Reason: Muscle Spasm) albuterol sulfate 2.5 mg /3 mL (0.083 %) Solution For Nebulization See Rx Instructions .ROUTE .COMPLEX Rx Instructions: USE 1 VIAL IN NEBULIZER EVERY 6 HOURS NEEDED FOR SHORTNESS OF BREATH OR WHEEZING hydrocodone-acetaminophen 5-325 mg Tablet 1 tab PO Q8H PRN (Reason: MODERATE OR SEVERE PAIN) alendronate 70 mg Tablet 70 mg PO .WEEKLY Rx Instructions: ON WEDNESDAY Vitamin B-12 1,000 mcg Tablet 1,000 mcg PO DAILY levothyroxine 25 mcg Tablet 25 mcg PO DAILY terbinafine HCl 250 mg Tablet 250 mg PO DAILY Milk of Magnesia 400 mg/5 mL Suspension See Rx Instructions .ROUTE .COMPLEX Rx Instructions: 30 mL orally every 24 hours as needed for constipation. may administer one time if no bowel movement in 3 days. gabapentin 800 mg Tablet 800 mg PO QID bisacodyl 10 mg Suppository See Rx Instructions .ROUTE .COMPLEX PRN (Reason: Constipation) Rx Instructions: 10 mg rectally every 24 hours as needed for constipation if no results from milk of magnesia. budesonide 0.5 mg/2 mL Suspension For Nebulization 0.5 mg INHALATION BID montelukast 10 mg Tablet 10 mg PO QPM Vitamin D2 1,250 mcg (50,000 unit) Capsule 1,250 mcg PO .WEEKLY Ventolin HFA 90 mcg/actuation Hfa Aerosol Inhaler 2 puff INHALATION Q4H PRN (Reason: Shortness Of Breath) ipratropium bromide 0.02 % Solution 2.5 ml INHALATION QID melatonin 10 mg Tablet 10 mg PO DAILY PRN (Reason: Insomnia) Discontinued meloxicam 7.5 mg Tablet 7.5 mg PO DAILY metoprolol tartrate 25 mg Tablet 12.5 mg PO DAILY Discharge Orders: Discharge Order (Routine); Ordered 02/19/23 Ordered By: Enoch Fernando Referrals: Sheri Fong NP [Primary Care Provider] - 2 weeks Discharge Diet: Regular Discharge Activity: Increase activity as tolerated Patient Instructions: Metoprolol (By mouth), Sucralfate (By mouth), Doxycycline (By mouth), Prednisone (By mouth), Levofloxacin (By mouth) (Levaquin, Levaquin Leva-alfred), Pantoprazole (By mouth), Opioid Safety Activity Restrictions/Additional Instructions: Take antibiotics including doxycycline and Levaquin for next 7 days. You will be on prednisone 50 mg daily for next 5 days. Do not take meloxicam anymore. Take Protonix twice daily for 4 weeks and then once daily. Takes Carafate before meals and at bedtime for next 4 weeks. Please recheck CBC and follow-up with a primary care provider within the next 2 weeks. Discharge Attestations Time Spent in Discharge Care*: greater than 30 min Specific Discharge Activities: educating patient, educating and/or supporting family/caregiver, discussing with pcp/other providers, discussing with mattress spring encaser/social workers/dc planners, documenting/other paperwork and evaluating patient/reviewing data Status at Discharge: Cognitive status at discharge: cognitively intact, Behavioral status at discharge: cooperative, Functional status at discharge: other assisted ambulation, Overall status at discharge: patient is back to baseline Quality Metrics Clinical Quality Measures [ No reported AMI, CVA or VTE this stay] Coding Level of Care Code 65999 Total time (in minutes) for Discharge: 50 Diagnoses Pneumonia J18.9 COPD (chronic obstructive pulmonary disease) J44.9 Anemia D64.9 Respiratory failure J96.90 Neuropathy G62.9 Hip fracture S72.009A Hypertension I10
[2023-02-19 13:37] LABS: SARS Covid-2 Antigen negative (Negative)
[2023-02-19] MEDS: HYDROcodone-acetaminophen 5-325 mg Tablet 1 TAB PO (16:15)
[2023-02-19] MEDS: montelukast sodium 10 mg Tablet PO (17:36)
== END 2023-02-19 18:00 | disposition skilled nursing facility (03) ==
LOC: ER 15:46 → MEDSURG 16:49
PROVIDERS: Internal Medicine; Admitting Provider Student in an Organized Health Care Education/Training Program; Emergency Provider Family Medicine; PCP Nurse Practitioner Family; Visit Provider Student in an Organized Health Care Education/Training Program
DX: J18.9 Pneumonia, unspecified organism (principal); J44.9 Chronic obstructive pulmonary disease, unspecified; D64.9 Anemia, unspecified; J96.90 Respiratory failure, unspecified, unspecified whether with hypoxia or hypercapnia; G62.9 Polyneuropathy, unspecified; S72.009A Fracture of unspecified part of neck of unspecified femur, initial encounter for closed fracture; X58.XXXA Exposure to other specified factors, initial encounter; I10 Essential (primary) hypertension
CPT/HCPCS: 36415; 36416; 36430; 71045; 71250; 73700; 74177; 80048; 80053; 80061; 81003; 82274; 82607; 82728; 82746; 82962; 83010; 83036; 83540; 83550; 83605; 83735; 84100; 84145; 84443; 85007; 85014; 85018; 85025; 85045; 86140; 86403; 86850; 86900; 86920; 87040; 87426; 87641; 94640; 97110; 97161; 97530; 99285; C9113; G0378; J2920; J7626; P9016; Q9967

== ENCOUNTER → 2023-03-10 14:27 | Outpatient (BNVA) | payer MEDICARE, SELFPAY | PROVIDERS: PCP Nurse Practitioner Family; Visit Provider Nurse Practitioner Family | DX: B35.1 Tinea unguium (principal); D63.8 Anemia in other chronic diseases classified elsewhere; J44.9 Chronic obstructive pulmonary disease, unspecified; M81.0 Age-related osteoporosis without current pathological fracture | CPT/HCPCS: 80053 ==

== ENCOUNTER → 2024-09-22 09:56 | Outpatient (BNVA) | payer MEDICARE, MEDICAID, SELFPAY | PROVIDERS: PCP Nurse Practitioner Family; Referring Provider Nurse Practitioner Family; Visit Provider Nurse Practitioner Family | DX: M54.2 Cervicalgia (principal); Z87.891 Personal history of nicotine dependence | CPT/HCPCS: 72040; 99214 ==

== ENCOUNTER → 2024-09-26 14:37 | Outpatient (BNVA) | payer MEDICARE, MEDICAID, SELFPAY | PROVIDERS: PCP Nurse Practitioner Family; Visit Provider Nurse Practitioner Family | DX: M54.2 Cervicalgia (principal); M79.18 Myalgia, other site | CPT/HCPCS: 20553; 81000; 99214; J1010; J3490 ==

== ENCOUNTER 2024-10-06 12:35 | Outpatient (CLI) | payer MEDICARE, MEDICAID, SELFPAY ==
--- NOTE | 2024-10-06 12:45 | CTR_ITS ---
PROCEDURE INFORMATION: Exam: CT Cervical Spine Without Contrast Exam date and time: 10/06/2024 12:52 PM Age: 84 years old Clinical indication: Pain; Cervicalgia; Additional info: M54.2 - cervicalgia TECHNIQUE: Imaging protocol: Computed tomography of the cervical spine without contrast. Radiation optimization: All CT scans at this facility use at least one of these dose optimization techniques: automated exposure control; mA and/or kV adjustment per patient size (includes targeted exams where dose is matched to clinical indication); or iterative reconstruction. COMPARISON: CR XR cervical spine 3V* [id number] 09/22/2024 10:01 AM RADIATION DOSE METRICS: Total DLP (mGy-cm): 156.57 FINDINGS: Bones: Generalized osseous demineralization. No acute fracture. Normal alignment. No significant disc bulge or herniation. No severe spinal canal stenosis. Moderate facet arthropathy and associated neural foraminal stenosis throughout the cervical spine. Moderate uncovertebral hypertrophy in the lower cervical spine. Lungs: Emphysematous changes at the lung apices. Soft tissues: Unremarkable. CT/CT cervical spin wo con* [id number] IMPRESSION: No acute findings. Degenerative changes of the cervical spine as described in the body report.
== END 2024-10-06 12:36 | disposition home or self-care (01) ==
LOC: RAD 12:37
PROVIDERS: PCP Nurse Practitioner Family; Visit Provider Nurse Practitioner Family
DX: M47.892 Other spondylosis, cervical region (principal); M85.88 Other specified disorders of bone density and structure, other site; M48.02 Spinal stenosis, cervical region; M89.38 Hypertrophy of bone, other site
CPT/HCPCS: 72125

== ENCOUNTER → 2024-10-10 13:29 | Outpatient (BNVA) | payer MEDICARE, MEDICAID, SELFPAY | PROVIDERS: PCP Nurse Practitioner Family; Visit Provider Nurse Practitioner Family | DX: M54.2 Cervicalgia (principal); Z87.891 Personal history of nicotine dependence | CPT/HCPCS: 99213 ==

== ENCOUNTER → 2024-10-25 09:08 | Outpatient (BNVA) | payer MEDICARE, MEDICAID, SELFPAY | PROVIDERS: PCP Nurse Practitioner Family; Visit Provider Anesthesiology Pain Medicine | DX: M47.812 Spondylosis without myelopathy or radiculopathy, cervical region (principal); M54.2 Cervicalgia | CPT/HCPCS: 64490; 64491; 64492; J3490; J9999 ==

== ENCOUNTER → 2024-11-15 11:17 | Outpatient (BNVA) | payer MEDICARE, MEDICAID, SELFPAY | PROVIDERS: PCP Nurse Practitioner Family; Visit Provider Nurse Practitioner Family | DX: M54.2 Cervicalgia (principal) | CPT/HCPCS: 99214 ==

== ENCOUNTER → 2024-12-13 15:10 | Outpatient (BNVA) | payer MEDICARE, MEDICAID, SELFPAY | PROVIDERS: PCP Nurse Practitioner Family; Visit Provider Anesthesiology Pain Medicine | DX: M47.812 Spondylosis without myelopathy or radiculopathy, cervical region (principal); M54.2 Cervicalgia | CPT/HCPCS: 64490; 64491; 64492; J3490; J9999 ==

== ENCOUNTER → 2024-12-18 13:30 | Outpatient (BNVA) | payer MEDICARE, MEDICAID, SELFPAY | PROVIDERS: PCP Nurse Practitioner Family; Visit Provider Nurse Practitioner Family | DX: M54.2 Cervicalgia (principal) | CPT/HCPCS: 99214 ==

== ENCOUNTER → 2025-01-24 08:32 | Outpatient (BNVA) | payer MEDICARE, MEDICAID, SELFPAY | PROVIDERS: PCP Nurse Practitioner Family; Visit Provider Anesthesiology Pain Medicine | DX: M47.812 Spondylosis without myelopathy or radiculopathy, cervical region (principal); M54.2 Cervicalgia | CPT/HCPCS: 64633; 64634; J1100; J9999 ==

== ENCOUNTER → 2025-02-06 11:16 | Outpatient (BNVA) | payer MEDICARE, MEDICAID, SELFPAY | PROVIDERS: PCP Nurse Practitioner Family; Visit Provider Nurse Practitioner Family | DX: M54.2 Cervicalgia (principal); Z87.891 Personal history of nicotine dependence | CPT/HCPCS: 99214 ==